=== PATIENT | female | born 1970 | race Caucasian/White ===

== ENCOUNTER 2023-10-17 09:29 | Emergency (ER) | payer BC, SELFPAY ==
[2023-10-17 09:39] VITALS: BP 114/75; PULSE 78; RESP 16; TEMP 36.8; O2SAT 100
--- NOTE | 2023-10-17 09:42 | ED.URI ---
HPI - URI/Sore Throat General Chief Complaint: Upper Respiratory Infection Stated Complaint: Sore Throat History of Present Illness HPI Narrative: 52-year-old female presented for complaint of sore throat for 4 days. Endorses painful swallow and neck is tender to touch. Taking ibuprofen, Benadryl, and Sudafed for symptoms. Endorses exposure to strep. Denies headache, sinus congestion, cough, nausea, vomiting, diarrhea, fevers or chills. Related Data Home Medications Medication Instructions Recorded Confirmed sumatriptan succinate 100 mg tablet 100 mg PO ONCE 08/23/22 08/23/22 Allergies Allergy/AdvReac Type Severity Reaction Status Date / Time Aminoglycosides Allergy Mild Rash Verified 10/17/23 09:38 bacitracin Allergy Mild Rash Verified 10/17/23 09:38 neomycin Allergy Mild Rash Verified 10/17/23 09:38 POLYMYXINBSULF Allergy Mild Rash Uncoded 10/17/23 09:38 TAPE Allergy Mild Rash Uncoded 10/17/23 09:38 Review of Systems Review of Systems: CONSTITUTIONAL: Denies body aches, fever, chills, or sweats. EYES: Denies visual changes, redness, or discharge. ENT: reports sore throat Denies rhinorrhea, congestion, or otalgia. CARDIOVASCULAR: Denies chest pain, palpitations, or edema. RESPIRATORY: Denies dyspnea. GASTROINTESTINAL: Denies abdominal pain, nausea, vomiting, or diarrhea. SKIN: Denies rash, itching, or wounds. MUSCULOSKELETAL: Denies back pain, joint pain, or myalgia. 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 Migraines Surgical History Surgical History History of breast biopsy (06/09/17) (R) breast bx--invasive ductal carcinoma bilateral breast cysts aspiration History of colposcopy with cervical biopsy (07/30/14) benign History of lumpectomy of right breast (07/08/17) invasive ductal carcinoma History of robot-assisted laparoscopic hysterectomy (09/22/17) RA TLH w/BSO--enlarged uterus History of tubal ligation (08/29/08) lscope (L) tubal ligation History of unilateral salpingectomy (12/20/05) EUA/laparoscopy/(R) distal salpingectomy for removal of ectopic --Cabrera Holloway MD--heterotopic Family History Family History Grandparent Breast cancer paternal grandmother Father Diabetes mellitus Parkinson disease Cerebrovascular accident Social History Social History Smoking status: Never smoker Alcohol intake: never Substance use: never Substance use type: does not use Living arrangements: other Additional living arrangements comments: 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 EYES: conjunctivae clear ENT: Mucous membranes moist. TMs pearly nagel with normal light reflex bilaterally; no tragal tenderness. Oropharynx mildly erythematous without lesions. Tonsils enlarged 1+ and without exudate. No drooling, no hoarseness, no trismus, uvula midline. No tripod positioning, hot potato voice, or soft palate swelling. NECK: Supple. bilateral anterior cervical lymphadenopathy CHEST: Clear to auscultation, breath sounds equal. No respiratory distress, speaks in full sentences. HEART: Regular rate and rhythm. No murmur heard. SKIN: Warm, dry, no rash. NEURO: Alert and oriented x3. Course Course Emergency Course: Patient is aware of diagnosis, understands and agrees to treatment plan. Anticipatory
== END 2023-10-17 10:28 | disposition home or self-care (01) ==
PROVIDERS: Emergency Provider Nurse Practitioner Family; PCP Family Medicine
DX: J02.9 Acute pharyngitis, unspecified (principal); Z85.3 Personal history of malignant neoplasm of breast; Z90.11 Acquired absence of right breast and nipple
CPT/HCPCS: 87081; 87880; 99213; G0463